=== PATIENT | male | born 1995 | race Caucasian/White ===

== ENCOUNTER 2018-10-18 12:43 | Inpatient (IN) | payer OTHER, SELFPAY ==
[2018-10-18] MEDS ORDERED: Vancomycin HCl 1.5 GM in Sodium Chloride 0.9% 250 ML 300 ML IVPB SCH (14:00)
[2018-10-18] MEDS ORDERED: CEFAZOLIN 2 GM in Premix Bag 1 BAG IVPB SCH (14:15)
[2018-10-18] MEDS ORDERED: PROPOFOL 200 MG/20 ML VIAL ONE (15:51)
[2018-10-18] MEDS ORDERED: Dexamethasone 20 MG/5 ML VIAL ONE (15:51)
[2018-10-18] MEDS ORDERED: Lidocaine 1% PF 5 ML VIAL ONE (15:51)
[2018-10-18] MEDS ORDERED: Ondansetron PF 4 MG/2 ML Vial ONE (15:51)
[2018-10-18 17:23] VITALS: BMI 21.7
[2018-10-18] MEDS ORDERED: Sodium Chloride 0.9% 30 ML ONE (18:11)
[2018-10-18] MEDS ORDERED: Bupivacaine PF 0.5% 30 ML VIAL ONE (18:11)
[2018-10-18] MEDS ORDERED: Bacitracin Zinc Ointment 30 gm TUBE ONE (18:11)
[2018-10-18] MEDS ORDERED: Fentanyl 100 MCG/2 ML VIAL ONE (19:37)
[2018-10-18] MEDS ORDERED: Midazolam HCl 2 mg/2 ml Vial ONE (19:37)
[2018-10-18] MEDS ORDERED: Promethazine HCl 25 MG/ML VIAL SLOW IVP PRN (21:28)
[2018-10-18] MEDS ORDERED: Ondansetron HCl/PF 4 MG/2 ML Vial IVP PRN (21:28)
[2018-10-18] MEDS ORDERED: Promethazine HCl 25 MG/ML VIAL IM PRN (21:28)
[2018-10-18] MEDS ORDERED: Ondansetron PF 4 MG/2 ML Vial IV PRN (21:55)
[2018-10-18] MEDS ORDERED: traMADol HCl 50 MG TAB PO PRN (21:55)
[2018-10-18] MEDS ORDERED: Meperidine HCl/PF 25 MG/ML VIAL IM PRN (21:59)
[2018-10-18] MEDS ORDERED: Vancomycin HCl 1 GM in Premix Bag 1 BAG IVPB SCH (22:00)
--- NOTE | 2018-10-18 22:00 | CON ---
DATE OF CONSULTATION: 10/18/2018 CHIEF COMPLAINT: Left index finger infection. HISTORY OF PRESENT ILLNESS: Mr. 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 At that time, he had bleeding. He cleansed the wound. He took antibiotics he had at the house already and dressed the wound. Unfortunately, he got an infection. He did not seek treatment. It has now been one month. He has had progressive worsening of his infection with swelling, drainage, and dehiscence of wound. [facility] been [facility] and the [facility] has transferred him to the hospital for evaluation of his finger infection. He is right-hand dominant. He had fevers and chills intermittently. He has had increased pain. PAST MEDICAL AND SURGICAL HISTORY: Negative. ALLERGIES: NO KNOWN DRUG ALLERGIES. REVIEW OF SYSTEMS: Positive for hand symptoms only. PHYSICAL EXAMINATION: VITAL SIGNS: Stable. He is afebrile. GENERAL: He is alert and oriented, no apparent distress. Breathing comfortably. RESPIRATORY: Equal chest rise. ABDOMEN: Soft, nontender, and nondistended. MUSCULOSKELETAL: The patient's left hand has a dehisced open wound on the volar aspect. This travels deeply down to the tendon and likely to the bony level. There is fusiform swelling. He has no sensation of the tip of the finger with poor vascularity. There is sluggish blood flow. He has fusiform swelling and severe stiffness of the finger. Mild palmar tenderness as well. IMPRESSION: Neglected flexor tenosynovitis with now chronic fusiform changes and likely progressing to necrosis of the distal finger tip. PLAN: The patient will need operative intervention as well as intravenous antibiotics. I will discuss it with my partner, Dr. Sewell, for further treatment. He will be n.p.o. He will likely need to go to surgery today for at least an irrigation procedure, possibly amputation and other procedures as needed. We will continue to monitor closely. Job ID: [id number]
[2018-10-18] MEDS ORDERED: Morphine 4 MG/ML VIAL SLOW IVP PRN (22:30)
[2018-10-18] MEDS ORDERED: TETANUS AND DIPHTHERIA TOX/PF 0.5 ML DISP.SYRIN IM SCH (22:45)
[2018-10-19] MEDS: Vancomycin HCl 1.25 GM in Sodium Chloride 0.9% 250 ML 250 ML IVPB SCH ×2 (00:46→11:47)
[2018-10-19] MEDS: Ketorolac Tromethamine 30 MG/ML VIAL IVP SCH ×5 (00:46→23:11)
[2018-10-19 08:12] LABS: #Basophils 0.1 thou/uL (0.0-0.2); #Eosinphils 0.1 thou/uL (0.0-0.7); #Lymphocytes 1.1 thou/uL (1.20-3.40); #Monocytes 0.4 thou/uL (0.11-0.59); #Neutrophils 6.3 thou/uL (1.40-6.50); %Basophils 0.8 % (0.0-1.0); %Eosinophils 1.1 % (0.0-10.0); %Lymphocytes 14.2 % (21.0-51.0); %Monocytes 5.6 % (0.0-10.0); %Neutrophils 78.4 % (42.0-75.0); Hemoglobin 14.1 g/dL (14.0-18.0); Mean Corpuscular HGB CONC 33.8 g/dL (32.0-36.0); Mean Corpuscular Hemoglobin 29.3 pg (27.0-31.0); Mean Corpuscular Volume 86.9 fL (78.0-98.0); Mean Platelet Volume 8.6 fL (7.4-10.4); Platelet Count 233 thou/uL (130-400); RBC Distribution Width 12.8 % (11.5-14.5); Red Blood Cell (RBC) Count 4.82 mill/uL (4.70-6.10)
[2018-10-19 08:31] LABS: ALT (SGPT) 12 U/L (8-55); AST (SGOT) 10 U/L (5-34); Albumin 3.8 g/dL (3.5-5.0); Alkaline Phosphatase 52 U/L (40-150); Anion Gap 15 mmol/L (10-20); BUN (Urea Nitrogen) 10 mg/dL (8.9-20.6); Bilirubin, Total 0.9 mg/dL (0.2-1.2); Calc. Creatinine Clearance 130 mL/min (70-130); Calcium 9.1 mg/dL (7.8-10.44); Carbon Dioxide 21 mmol/L (22-29); Chloride 104 mmol/L (98-107); Estimated GFR-MDRD Greater than 90; Globulin 2.7 g/dL (2.4-3.5); Glucose 94 mg/dL (70-105); Potassium 4.4 mmol/L (3.5-5.1); Protein, Total 6.5 g/dL (6.0-8.3); Sodium 136 mmol/L (136-145)
[2018-10-19] MEDS: Aspirin 81 mg Enteric Coated Tablet PO SCH ×2 (08:31→20:31)
[2018-10-19] MEDS: HYDROcodone/Acetaminophen 5/325 mg Tablet PO PRN ×3 (08:31→23:10)
--- NOTE | 2018-10-19 11:10 | OP ---
DATE OF PROCEDURE: 10/18/2018 PREOPERATIVE DIAGNOSES: 1. Left flexor tendon sheath abscess, index finger. 2. Osteomyelitis distal phalanx. 3. Abscess distal phalangeal. 4. Necrotic tissue with necrosis and abscess desiccation, distal phalanx palmar aspect. ANESTHESIA: General LMA technique by [employer] [facility]est[facility]. COMPLICATIONS: None. PROCEDURES PERFORMED: 1. Abscess incision and drainage, index finger, left. 2. Arthrotomy with drainage of abscess, index finger left distal phalangeal joint. 3. Left index finger incision of bone cortex, distal phalanx for osteomyelitis to include bone cultures. 4. Radical flexor digitorum profundus tenosynovectomy. 5. Radical flexor digitorum superficialis tenosynovectomy. ESTIMATED BLOOD LOSS: 10 mL. TOURNIQUET TIME: 11 minutes. SPECIMENS REMOVED: 1. Abscess cavity, wound, and bone cultures. 2. Bone cortical specimen pathology to rule out osteomyelitis via pathological specimen. Most specified is a soft, necrotic skin, intact neurovascular bundle at the end of debridement. INDICATIONS: The patient had reported to me that he was working a lot more approximately 4 weeks prior when he had open wound contact from the blade. He was treated with normal saline soaks at home and noticed the wound began to heal except for the distal 1 cm palmar aspect which made open and 4 days prior to coming to the hospital, he noted drainage from this area. He had also been arrested and is in the care of [facility] alf personnel who brought into the hospital because of this infection. Then, we injected the first 10 mL of total 20 mL 0.5% Marcaine at the metacarpophalangeal block level and some in the palmar crease where it extended to the A1 shelbi. He had erythema with complete desiccation of a 5 x 6 mm area skin over the palmar aspect of the distal interphalangeal joint. We then made a Siddhartha incision beginning distal and ulnar to this and carried it radial and proximal and then crossing over in a Siddhartha fashion along the proximal phalanx. We carried this through the skin and subcutaneous tissue until we found mucopurulent abscess around the flexor tendon with degeneration of the A1 shelbi and then mucopurulence around the flexor tendon sheath which we resected all the way from its insertion slightly distal to the tubercle and then followed this back until we saw a very thick tenosynovium on the flexor digitorum superficialis and profundus. We began at the proximal level of the A2 shelbi then, just proximal, began a radical flexor tenosynovectomy, which was accomplished without complication. We then finished arthrotomy and drained abscess within the palmar surface of the distal interphalangeal joint as the A4 shelbi with marked involvement during the process and was very tenuous. We finished irrigation with 3 L normal saline and Pulsavac pressure and over 250 mL, 25 mL at a time, in the bone surrounding appropriate markers. The soft tissue incision of the cortex of the distal phalanx revealed some soft spongiform almost mucopurulent bone beginning with the subarticular region all the way proximally. The patient had the radical flexor tenosynovectomy extended to both of the digitorum profundus and superficialis today. We released the tourniquet, we then obtained hemostasis, we irrigated again. At this time, there was no mistaken tissue planes as they were all exposed. The patient then had a normal saline soaked 4 x 4, placed in appropriate position and then the patient was prepared for exciting. We extended the incision proximal to the A1 shelbi approximately 2 cm long, carried to the skin and subcutaneous tissue, the tourniquet was down. Entered the tendon sheath which again was thick, but not pathologically thick and obtained the appropriate closure and wound dressing. Job ID: [id number]
[2018-10-19] MEDS: Nicotine 21 MG PATCH TD SCH (23:10)
[2018-10-20] MEDS: Vancomycin HCl 1.25 GM in Sodium Chloride 0.9% 250 ML 250 ML IVPB SCH ×2 (00:32→12:16)
[2018-10-20] MEDS: Aspirin 81 mg Enteric Coated Tablet PO SCH ×2 (09:09→20:42)
[2018-10-20] MEDS: HYDROcodone/Acetaminophen 5/325 mg Tablet PO PRN (10:58)
[2018-10-20 11:44] LABS: Vancomycin, Trough 7.2 ug/mL
[2018-10-20] MEDS: Nicotine 21 MG PATCH TD SCH (23:00)
[2018-10-21] MEDS: Vancomycin HCl 1.5 GM in Sodium Chloride 0.9% 250 ML 300 ML IVPB SCH ×3 (00:45→23:09)
[2018-10-21] MEDS: HYDROcodone/Acetaminophen 5/325 mg Tablet PO PRN ×2 (04:34→14:31)
[2018-10-21] MEDS: Aspirin 81 mg Enteric Coated Tablet PO SCH ×2 (08:31→20:39)
[2018-10-21] MEDS: Nicotine 21 MG PATCH TD SCH (22:57)
[2018-10-22] MEDS: Aspirin 81 mg Enteric Coated Tablet PO SCH ×2 (09:13→19:36)
[2018-10-22 11:39] LABS: Vancomycin, Trough 8.1 ug/mL
[2018-10-22] MEDS: HYDROcodone/Acetaminophen 5/325 mg Tablet PO PRN (12:02)
[2018-10-22] MEDS: Vancomycin HCl 1.5 GM in Sodium Chloride 0.9% 250 ML 300 ML IVPB SCH (13:14)
[2018-10-22] MEDS: Vancomycin HCl 1.25 GM in Sodium Chloride 0.9% 250 ML 250 ML IVPB SCH ×2 (13:50→19:36)
[2018-10-22] MEDS ORDERED: CEFAZOLIN 2 GM in Premix Bag 1 BAG IVPB SCH (15:45)
[2018-10-22] MEDS: Nicotine 21 MG PATCH TD SCH (22:32)
[2018-10-23] MEDS: Vancomycin HCl 1.25 GM in Sodium Chloride 0.9% 250 ML 250 ML IVPB SCH ×4 (04:52→23:45)
[2018-10-23] MEDS: Aspirin 81 mg Enteric Coated Tablet PO SCH ×2 (08:31→21:54)
[2018-10-23] MEDS ORDERED: Thrombin 5000 UNITS/5 ML VIAL ONE (09:54)
[2018-10-23] MEDS ORDERED: Bupivacaine PF 0.5% 30 ML VIAL ONE (09:54)
[2018-10-23] MEDS ORDERED: Bacitracin Zinc Ointment 30 gm TUBE ONE (09:54)
[2018-10-23] MEDS ORDERED: Sodium Chloride 0.9% 0 ML ONE (09:54)
[2018-10-23] MEDS ORDERED: Midazolam HCl 2 mg/2 ml Vial ONE (09:58)
[2018-10-23] MEDS ORDERED: Fentanyl 100 MCG/2 ML VIAL ONE (09:58)
[2018-10-23] MEDS ORDERED: Promethazine HCl 25 MG/ML VIAL ONE (10:07)
[2018-10-23] MEDS ORDERED: Ondansetron HCl/PF 4 MG/2 ML Vial IVP PRN (12:17)
[2018-10-23] MEDS ORDERED: Promethazine HCl 25 MG/ML VIAL SLOW IVP PRN (12:17)
[2018-10-23] MEDS ORDERED: PACU-Morphine 4MG/ML VIAL SLOW IVP PRN (12:17)
[2018-10-23] MEDS ORDERED: Promethazine HCl 25 MG/ML VIAL IM PRN (12:17)
[2018-10-23] MEDS ORDERED: HYDROmorphone 2 MG/ML VIAL SLOW IVP PRN (12:17)
[2018-10-23] MEDS ORDERED: ePHEDrine 50 MG/ML VIAL ONE (13:54)
[2018-10-23] MEDS ORDERED: Ketorolac Tromethamine 30 MG/ML VIAL ONE (13:54)
[2018-10-23] MEDS ORDERED: Lidocaine 1% PF 5 ML VIAL ONE (13:54)
[2018-10-23] MEDS ORDERED: Ondansetron PF 4 MG/2 ML Vial ONE (13:54)
[2018-10-23] MEDS ORDERED: PROPOFOL 200 MG/20 ML VIAL ONE (13:54)
[2018-10-23] MEDS ORDERED: Dexamethasone 20 MG/5 ML VIAL ONE (13:54)
[2018-10-23] MEDS: HYDROcodone/Acetaminophen 5/325 mg Tablet PO PRN (19:02)
[2018-10-23] MEDS: Nicotine 21 MG PATCH TD SCH (21:54)
[2018-10-24] MEDS: Vancomycin HCl 1.25 GM in Sodium Chloride 0.9% 250 ML 250 ML IVPB SCH (07:27)
[2018-10-24] MEDS: Aspirin 81 mg Enteric Coated Tablet PO SCH (07:27)
[2018-10-24 08:11] VITALS: BP 130/78; TEMP 98.6
--- NOTE | 2018-10-24 08:30 | OP ---
DATE OF PROCEDURE: 10/23/2018 PREOPERATIVE DIAGNOSES: 1. Open wound 3 cm x 1.5 cm palmar aspect of the distal half of the middle phalanx, left index finger with some necrotic tissue over 5 mm area approximate. 2. No gross infection. 3. Degeneration of the flexor digitorum profundus tendon. PROCEDURES PERFORMED: 1. Debridement of the wound using the following techniques: a. Excision technique. b. Bartelso blade, 11 blade knife, tenotomy scissors, Adson's and irrigation with 2 L normal saline. c. The depth was down to and including the tendon and undersurface of tendon was inspected with no gross further infection. 2. Closure of 1 cm wound. 3. Full-thickness skin graft to the long finger over the middle phalanx to match the cross-finger flap 3 x 1.75 cm to cover the index defect taken from the dorsal middle finger. 4. Application of short-arm splint. 5. 3.0 x 1.7 cm full-thickness skin graft harvest from ipsilateral antecubital fossa. INDICATIONS FOR PROCEDURE: The patient returns for staged wound management of a very contaminated dirty wound, underwent 3 days of IV antibiotics and dressing changes in the unit prior. His wound looks like it was prepared for closure. DESCRIPTION OF PROCEDURE: After successful general LMA technique, the limb was prepped and draped. The patient had time-out done appropriately, inspected all wounds and found it was necrotic 5 x 3 mm area at the base of the radial ulnar aspect of his index finger wound, which we dissected as a formal debridement using the techniques listed above. Then, with tourniquet inflated, we realized that he would need a cross-finger flap to cover this, so we outlined a cross-finger flap skin graft cover over the donor site and outlined the recipient site, which would be the index finger. We had completely performed hemostasis for flexor tendon. We did a small amount of flexor digitorum profundus tenotomy/tenolysis to remove any evidence of necrosis and inspected the shelbi and the area under the shelbi to the bone showing no and no infection. At this point, we then went to harvest obliquely a 3 x 1.75 cm rectangular oblong shape cross-finger flap, which had excellent circulation once we let the tourniquet down and was long enough to reach the other side of the wound on the index finger. At this point, we also secured the cross-finger flap to the index finger with a heavy 3-0 suture in the end and completed the coverage by suturing everything, but the proximal input point from the neurovascular bundle. The graft was pink in the center and later on the edges. We then harvested a full-thickness skin graft 3 x 1.5 cm along the ipsilateral antecubital fossa and closed it primarily using Dermabond for the epidermal and dermal closure with a running 3-0 Monocryl. We then had hemostasis cover the proximal wound, took a cotton ball soaked mineral oil bolster over bacitracin Adaptic and covered the recipient site. The patient left the operating room without evidence of anesthetic or operative complication just before placing him in a short-arm splint with the index and long finger together, and the ring and small fingers . Job ID: [id number]
== END 2018-10-24 13:36 | disposition left against medical advice (07) | DRG 506 ==
LOC: ERS 12:43 → SURG B 17:13
PROVIDERS: ADMIT Orthopaedic Surgery; ATTEND Orthopaedic Surgery
PROC: 0LB80ZZ Excision of Left Hand Tendon, Open Approach (ICD-10-PCS; principal; 2018-10-18)
PROC: 0PBV0ZZ Excision of Left Finger Phalanx, Open Approach (ICD-10-PCS; 2018-10-18)
PROC: 0R9X0ZZ Drainage of Left Finger Phalangeal Joint, Open Approach (ICD-10-PCS; 2018-10-18)
PROC: 0LB80ZZ Excision of Left Hand Tendon, Open Approach (ICD-10-PCS; 2018-10-23)
PROC: 0HRGX73 Replacement of Left Hand Skin with Autologous Tissue Substitute, Full Thickness, External Approach (ICD-10-PCS; 2018-10-23)
PROC: 0HBEXZZ Excision of Left Lower Arm Skin, External Approach (ICD-10-PCS; 2018-10-23)
DX: M86.8X4 Other osteomyelitis, hand (principal); L02.512 Cutaneous abscess of left hand; I96 Gangrene, not elsewhere classified; M65.142 Other infective (teno)synovitis, left hand; F17.210 Nicotine dependence, cigarettes, uncomplicated; L03.012 Cellulitis of left finger
CPT/HCPCS: 36415; 80053; 80202; 85025; 87070; 87077; 87186; 87205; 88305; 96365; 96366; J0690; J1100; J1885; J2001; J2250; J2405; J2550; J2704; J3010; J3370; J3490; J7050; S0020

== ENCOUNTER 2018-12-04 11:03 | Day surgery (SDC) | payer OTHER ==
[2018-11-30 10:58] VITALS: BMI 29.5
[2018-12-04 11:43] LABS: #Basophils 0.1 thou/uL (0.0-0.2); #Eosinphils 1.5 thou/uL (0.0-0.7); #Lymphocytes 2.3 thou/uL (1.20-3.40); #Monocytes 0.6 thou/uL (0.11-0.59); #Neutrophils 2.8 thou/uL (1.40-6.50); %Basophils 1.2 % (0.0-1.0); %Lymphocytes 31.6 % (21.0-51.0); %Monocytes 8.3 % (0.0-10.0); %Neutrophils 37.9 % (42.0-75.0); Hemoglobin 16.2 g/dL (14.0-18.0); Mean Corpuscular HGB CONC 33.5 g/dL (32.0-36.0); Mean Corpuscular Hemoglobin 29.8 pg (27.0-31.0); Mean Platelet Volume 8.5 fL (7.4-10.4); Platelet Count 182 thou/uL (130-400); RBC Distribution Width 12.9 % (11.5-14.5); Red Blood Cell (RBC) Count 5.44 mill/uL (4.70-6.10); White Blood Cell (WBC) Count 7.3 thou/uL (4.8-10.8)
[2018-12-04] MEDS ORDERED: Dexamethasone 20 MG/5 ML VIAL ONE (12:43)
[2018-12-04] MEDS ORDERED: PROPOFOL 200 MG/20 ML VIAL ONE (12:43)
[2018-12-04] MEDS ORDERED: Lidocaine 1% PF 5 ML VIAL ONE (12:43)
[2018-12-04] MEDS ORDERED: Ondansetron PF 4 MG/2 ML Vial ONE (12:43)
[2018-12-04] MEDS ORDERED: Fentanyl 100 MCG/2 ML VIAL ONE ×3 (16:31→18:52)
[2018-12-04] MEDS ORDERED: Sodium Chloride 0.9% 0 ML ONE (16:32)
[2018-12-04] MEDS ORDERED: Bacitracin Zinc Ointment 30 gm TUBE ONE (16:32)
[2018-12-04] MEDS ORDERED: Thrombin 5000 UNITS/5 ML VIAL ONE (16:32)
[2018-12-04] MEDS ORDERED: Bupivacaine PF 0.5% 30 ML VIAL ONE (17:09)
[2018-12-04] MEDS ORDERED: Ketorolac Tromethamine 30 MG/ML VIAL ONE (18:37)
--- NOTE | 2018-12-05 10:24 | OP ---
DATE OF PROCEDURE: 12/04/2018 PREOPERATIVE DIAGNOSIS: Cross-finger flap, persistent, now greater than 2 weeks old from the middle finger to the left index finger. POSTOPERATIVE DIAGNOSIS: Cross-finger flap, persistent, now greater than 2 weeks old from the middle finger to the left index finger. PROCEDURES PERFORMED: 1. Separation of cross-finger flap, index finger. 2. Closure, 5 cm wound, total of 5 cm, both the index and long finger. COMPLICATIONS: None. FINDINGS: Flap healed with no infection. Some persistent PIP joint stiffness. DESCRIPTION OF PROCEDURE: After successful general endotracheal anesthesia, limb was prepped and draped. The patient then had 10 mL of 0.5% Marcaine via even between the index finger and long finger. We did perform time-out, exsanguinated the limb, and inflated tourniquet to 250 mmHg pressure. We then spread apart the fingers to discern where the flap could be inset best and following the planes, as it appeared, we them with an 11 blade knife. We then were able to close the wounds, with a mm or less separation in any 1 spot on both fingers using interrupted 3-0 nylon in a simple pattern. Bacitracin, Adaptic and 4x4s were placed on each finger individually with finger tube gauze individually and a loop around the wrist to keep it from falling off. He left the operating room without evidence of anesthetic or operative complication. Job ID: [id number]
== END 2018-12-04 20:15 ==
LOC: SDC 11:03
PROVIDERS: ATTEND Orthopaedic Surgery Hand Surgery
PROC: 0H8 Skin and Breast, Division (ICD-10-PCS; principal; 2018-12-04)
DX: Z48.89 Encounter for other specified surgical aftercare (principal); M25.642 Stiffness of left hand, not elsewhere classified
CPT/HCPCS: 36415; 85025; J0690; J1100; J1885; J2001; J2405; J2704; J3010; J3490; S0020